=== PATIENT | female | born 1990 | race Caucasian/White ===

== ENCOUNTER 2018-02-04 09:34 | Outpatient (REF) | payer MEDICAID, SELFPAY ==
[2018-02-04 22:28] LABS: Hemoglobin A1C 5.3 % (4.5-6.2)
[2018-02-04 22:31] LABS: ALT 45 U/L (12-78); AST 22 U/L (15-37); Alkaline Phosphatase 105 U/L (46-116); Anion Gap 9.6 mmol/L (3-11); BUN 13 mg/dL (7-18); Bilirubin, Total 0.5 mg/dL (0.2-1.0); CO2 23.4 mmol/L (21.0-32.0); CREATININE 0.94 mg/dL (0.55-1.02); Chloride 105 mmol/L (98-107); Glucose 100 mg/dL (70-100); Potassium 4.3 mmol/L (3.5-5.1); Sodium 138 mmol/L (136-145); TSH 2.92 uIU/mL (0.358-3.74); Total Protein 7.6 g/dL (6.4-8.2)
== END 2018-02-04 09:54 ==
LOC: NCHCN 09:34
PROVIDERS: PCP Nurse Practitioner Family; Visit Provider Nurse Practitioner Family
DX: R73.09 Other abnormal glucose (principal); E03.9 Hypothyroidism, unspecified
CPT/HCPCS: 80053; 83036; 84443

== ENCOUNTER 2018-09-28 10:26 | Outpatient (REF) | payer MEDICAID, SELFPAY ==
[2018-09-28 22:51] LABS: Hemoglobin A1C 5.3 % (4.5-6.2); TSH 2.99 uIU/mL (0.358-3.74)
== END 2018-09-28 10:46 ==
LOC: NCHCN 10:26
PROVIDERS: PCP Nurse Practitioner Family; Visit Provider Nurse Practitioner Family
DX: R94.6 Abnormal results of thyroid function studies (principal); R73.09 Other abnormal glucose; F33.9 Major depressive disorder, recurrent, unspecified; E66.01 Morbid (severe) obesity due to excess calories
CPT/HCPCS: 83036; 84443